=== PATIENT | male | born 1940 | race Two or more races ===

== ENCOUNTER 2021-03-19 13:54 | Emergency (ER) | payer OTHER ==
[~2021-03-19] VITALS: Ht 165.1 cm; Wt 76.2 kg
[2021-03-19] MEDS ORDERED: LANTUS SOL100 UNIT/1 SQ (14:08)
[2021-03-19] MEDS ORDERED: SIMVASTATIN5 MG PO (14:09)
[2021-03-19] MEDS ORDERED: JANUMET XR 1001 EACH PO (14:09)
[2021-03-19] MEDS ORDERED: KETO10TA2 PO (17:20)
[2021-03-19] MEDS ORDERED: NORFLEX100MG PO (17:20)
== END 2021-03-19 17:28 | disposition home or self-care (01) ==
LOC: ER 13:54
DX: M54.50 Low back pain, unspecified (principal); R51.9 Headache, unspecified; W19.XXXA Unspecified fall, initial encounter; Y93.9 Activity, unspecified; Y92.019 Unspecified place in single-family (private) house as the place of occurrence of the external cause; Y99.9 Unspecified external cause status

== ENCOUNTER 2022-05-06 12:13 | Emergency (ER) | payer OTHER ==
[~2022-05-06] VITALS: Ht 162.6 cm; Wt 79.4 kg
[~2022-05-06 12:13] MED LIST: JANUMET XR 1001 EACH PO; KETO10TA2 PO; LANTUS SOL100 UNIT/1 SQ; NORFLEX100MG PO; SIMVASTATIN5 MG PO
== END 2022-05-06 16:09 | disposition home or self-care (01) ==
LOC: ER 12:13
DX: R51.9 Headache, unspecified (principal); W18.2XXA Fall in (into) shower or empty bathtub, initial encounter; Y93.89 Activity, other specified; Y92.018 Other place in single-family (private) house as the place of occurrence of the external cause; M54.9 Dorsalgia, unspecified; Z91.013 Allergy to seafood

== ENCOUNTER 2022-09-06 14:09 | Emergency (ER) | payer OTHER ==
[~2022-09-06] VITALS: Ht 165.1 cm; Wt 72.6 kg
[2022-09-06] MEDS ORDERED: JANUMET 50-1,01 EACH PO (14:26)
[2022-09-06] MEDS ORDERED: LANTUS SOL100 UNIT/1 (14:26)
[2022-09-06] MEDS ORDERED: TAMS0.4C PO (20:43)
== END 2022-09-06 20:58 | disposition home or self-care (01) ==
LOC: ER 14:09
DX: R10.84 Generalized abdominal pain (principal); N20.1 Calculus of ureter

== ENCOUNTER 2022-09-11 14:16 | Outpatient (CLI) | payer OTHER ==
[~2022-09-11 14:16] MED LIST changes: +JANUMET 50-1,01 EACH PO; +LANTUS SOL100 UNIT/1; +TAMS0.4C PO
== END 2022-09-11 14:19 | disposition home or self-care (01) ==
LOC: LAB 14:16
PROVIDERS: ATTEND Urology
DX: E11.9 Type 2 diabetes mellitus without complications (principal); I11.0 Hypertensive heart disease with heart failure

== ENCOUNTER 2022-09-12 08:26 | Outpatient (CLI) | payer OTHER | END 2022-09-12 08:33 | disposition home or self-care (01) | LOC: SONOGRAMA 08:26 | DX: N13.0 Hydronephrosis with ureteropelvic junction obstruction (principal); R33.9 Retention of urine, unspecified; N40.1 Benign prostatic hyperplasia with lower urinary tract symptoms; K80.00 Calculus of gallbladder with acute cholecystitis without obstruction ==

== ENCOUNTER 2022-09-20 16:49 | Inpatient (IN) | payer OTHER ==
[~2022-09-20] VITALS: Ht 165.1 cm; Wt 72.6 kg
[2022-09-20] MEDS ORDERED: TRAZODONE HCL50 MG PO (16:59)
[2022-09-20] MEDS ORDERED: RAMIPRIL10 MG PO (16:59)
[2022-09-26] MEDS ORDERED: INTEGRA PLUS C1 EACH PO (09:36)
[2022-09-26] MEDS ORDERED: TAMS0.4C PO (09:36)
[2022-09-26] MEDS ORDERED: TRAZODONE HCL50 MG PO (09:37)
[2022-09-26] MEDS ORDERED: SIMVASTATIN10 MG PO (09:37)
== END 2022-09-26 11:16 | disposition home or self-care (01) | DRG 638 ==
LOC: ER 16:49 → MEDJ 23:10
PROVIDERS: ADMIT Internal Medicine; ATTEND Internal Medicine
DX: E11.65 Type 2 diabetes mellitus with hyperglycemia (principal); E87.1 Hypo-osmolality and hyponatremia; N17.9 Acute kidney failure, unspecified; N39.0 Urinary tract infection, site not specified; N20.1 Calculus of ureter; E11.22 Type 2 diabetes mellitus with diabetic chronic kidney disease; N18.30 Chronic kidney disease, stage 3 unspecified; I12.9 Hypertensive chronic kidney disease with stage 1 through stage 4 chronic kidney disease, or unspecified chronic kidney disease; N40.0 Benign prostatic hyperplasia without lower urinary tract symptoms; Z79.4 Long term (current) use of insulin